=== PATIENT | male | born 1955 | race Hispanic/Latino ===

== ENCOUNTER 2017-05-11 07:54 | Day surgery (SDC) | payer MEDICARE, BC ==
[2017-05-02 15:26] VITALS: BMI 25.0
[2017-05-11] MEDS ORDERED: Propofol 10 mg/ml Inj (20 ML) ONE (10:10)
[2017-05-11] MEDS ORDERED: Sodium Chloride 0.9% 1,000 ML IV SCH (10:30)
[2017-05-11 11:06] VITALS: BP 121/69; PULSE 62; RESP 16; TEMP 97.7; O2SAT 98
== END 2017-05-11 11:23 | disposition home or self-care (01) ==
LOC: ENDO 07:54
PROVIDERS: ATTEND Specialist
DX: K31.7 Polyp of stomach and duodenum (principal); K31.9 Disease of stomach and duodenum, unspecified; K44.9 Diaphragmatic hernia without obstruction or gangrene; K21.9 Gastro-esophageal reflux disease without esophagitis; E11.9 Type 2 diabetes mellitus without complications; J44.9 Chronic obstructive pulmonary disease, unspecified; M19.90 Unspecified osteoarthritis, unspecified site

== ENCOUNTER 2017-06-29 08:52 | Day surgery (SDC) | payer MEDICARE, BC ==
[2017-05-02 15:26] VITALS: BMI 25.0
[~2017-06-29 08:52] MED LIST: Sodium Chloride 0.9% 1,000 ML IV SCH
[2017-06-29 09:20] VITALS: O2SAT 100
[2017-06-29] MEDS ORDERED: Propofol 10 mg/ml Inj (20 ML) ONE (10:08)
[2017-06-29 11:44] VITALS: BP 128/64; PULSE 60; RESP 18; TEMP 97.8
== END 2017-06-29 12:18 | disposition home or self-care (01) ==
LOC: ENDO 08:52
PROVIDERS: ATTEND Specialist
DX: K64.8 Other hemorrhoids (principal); E11.9 Type 2 diabetes mellitus without complications; J44.9 Chronic obstructive pulmonary disease, unspecified; E78.5 Hyperlipidemia, unspecified
CPT/HCPCS: 45378; 82948; J2704; J7040 ×2